=== PATIENT | female | born 1995 | race Caucasian/White ===

== ENCOUNTER 2022-10-23 05:22 | Emergency (ER) | payer SELFPAY ==
[2022-10-23 05:27] VITALS: BP 133/96; PULSE 73; RESP 16; TEMP 36.5; O2SAT 97
--- NOTE | 2022-10-23 06:13 | ED.GENADULT ---
HPI - General Adult General Chief complaint: Dental/Oral Stated complaint: infected tooth x 3 week Time Seen by Provider: 10/23/22 06:09 History of Present Illness HPI narrative: Patient is a 27-year-old female who presents the emergency department with chief complaint of dental pain. Patient reports that she has history of a dental abscess that she has seen a dentist and was referred to oral surgery but lost her insurance and has not seen an oral surgeon yet. Patient reports she is having severe pain in her upper molars reports that the pain is not improved by anything. Patient denies fever denies trismus Related Data Allergies Allergy/AdvReac Type Severity Reaction Status Date / Time No Known Allergies Allergy Verified 10/23/22 05:23 Review of Systems Review of Systems: A 10 system review of systems was completed on the patient and is negative except for what is stated in the HPI. Nursing and ancillary documentation was reviewed. Exam Narrative: GENERAL: Well-appearing, well-nourished, and in no acute distress. HEAD: Normocephalic, atraumatic. EYES: PERRLA and EOMI. ENT: Nares clear, no rhinorrhea or epistaxis. Mucous membranes moist. Oropharynx there is tenderness in the upper molar there is no fluctuance there is no trismus no crepitance no necrotic tissue NECK: Supple. CHEST: Clear to auscultation. No respiratory distress. HEART: Regular rate and rhythm. No murmur heard. Normal peripheral pulses. ABDOMEN: Soft, nontender, nondistended, normal active bowel sounds. EXTREMITIES: Normal range of motion. No edema. SKIN: Warm, dry, no rash. NEURO: No focal deficits. Alert and oriented x3. PSYCH: Normal mood and affect. Course Vital Signs Vital signs: Vital Signs Temperature 36.5 C 10/23/22 05:27 Pulse Rate 73 10/23/22 05:27 Respiratory Rate 16 10/23/22 05:27 Blood Pressure 133/96 H 10/23/22 05:27 Pulse Oximetry 97 10/23/22 05:27 Oxygen Delivery Room Air 10/23/22 05:27 Temperature 36.5 C 10/23/22 05:27 Pulse Rate 73 10/23/22 05:27 Respiratory Rate 16 10/23/22 05:27 Blood Pressure 133/96 H 10/23/22 05:27 Pulse Oximetry 97 10/23/22 05:27 Oxygen Delivery Room Air 10/23/22 05:27 Medical Decision Making MDM Narrative Medical decision making narrative: Differential diagnosis includes odontalgia, dental abscess, Patient received a dose of amoxicillin and received a dose of [place] in the emergency department the patient be discharged home on prescription strength ibuprofen and amoxicillin Vital Signs Vital Signs: Vital Signs Temperature 36.5 C 10/23/22 05:27 Pulse Rate 73 10/23/22 05:27 Respiratory Rate 16 10/23/22 05:27 Blood Pressure 133/96 H 10/23/22 05:27 Pulse Oximetry 97 10/23/22 05:27 Oxygen Delivery Room Air 10/23/22 05:27 Temperature 36.5 C 10/23/22 05:27 Pulse Rate 73 10/23/22 05:27 Respiratory Rate 16 10/23/22 05:27 Blood Pressure 133/96 H 10/23/22 05:27 Pulse Oximetry 97 10/23/22 05:27 Oxygen Delivery Room Air 10/23/22 05:27 Discharge Plan Discharge Clinical Impression: Dental abscess Patient Disposition: Home, Self-Care Condition: Stable Instructions: Antibiotic Form, Dental Abscess (ED) Prescriptions: New amoxicillin 500 mg capsule 500 mg PO Q12H Qty: 20 0RF ibuprofen 800 mg tablet 800 mg PO TID PRN (Reason: pain) Qty: 30 0RF Follow-up/Referrals: Lawrence,Nicolette Watson, [employer] [Primary Care Provider] - Stand Alone Forms: Work/School Release IP Time of Disposition: 06:16
[2022-10-23] MEDS: HYDROcodone/acetaminophen (*CRX) 5-325 MG TABLET 1 TAB PO (06:20)
[2022-10-23] MEDS: AMOXICILLIN 500 MG CAPSULE PO (06:20)
[2022-10-23 06:42] VITALS: BP 119/88; PULSE 77; RESP 14; O2SAT 100
== END 2022-10-23 06:43 | disposition home or self-care (01) ==
PROVIDERS: Emergency Provider Emergency Medicine; PCP Nurse Practitioner Family
DX: K04.7 Periapical abscess without sinus (principal)
CPT/HCPCS: 99283; A9270